=== PATIENT | female | born 1985 | race Two or more races ===

== ENCOUNTER 2019-05-11 11:51 | Observation (INO) | payer MEDICAID, OTHER ==
[~2019-05-11] VITALS: Ht 152.4 cm; Wt 94.3 kg
[2019-05-11 12:06] VITALS: BP 151/83
[2019-05-11] MEDS ORDERED: ACETAMINOPHEN 325 MG TAB PO ONE ×2 (12:10→12:15)
[2019-05-11] MEDS ORDERED: LACTATED RINGER'S 1,000 ML IV ONE ×2 (12:45→13:15)
[2019-05-11] MEDS ORDERED: PREN27TA7 PO (12:48)
[2019-05-11 13:09] LABS: Urine Bacteria FEW /hpf (None Seen); Urine Blood Negative /uL (Negative); Urine Mucus FEW (None Seen); Urine Specific Gravity 1.019 (1.001-1.035); Urine WBC 3 /hpf (0 - 5)
[2019-05-11] MEDS ORDERED: ACETAMINOPHEN 325 MG TAB PO PRN (13:15)
[2019-05-11] MEDS ORDERED: CEFTRIAXONE SODIUM 2 GM in D5W 5% 50 ML IV ONE (13:15)
[2019-05-11 13:23] LABS: Alcohol, Urine < 3.0 mg/dL (0-5); Amphetamine Screen, Urine NEGATIVE (NEGATIVE); Barbiturate Scree,Urine NEGATIVE (NEGATIVE); Benzodiazephine Screen, Urine NEGATIVE (NEGATIVE); Cannabinoid Screen, Urine NEGATIVE (NEGATIVE); Cocaine Screen, Urine NEGATIVE (NEGATIVE); Opiate Scree,Urine NEGATIVE (NEGATIVE); Phencyclidine Screen, Urine NEGATIVE (NEGATIVE)
[2019-05-11 13:47] LABS: Basophils # (auto) 0.1 uL; Basophils % (auto) 0.4 % (0.0-2.0); Eosinophils # (auto) 0 uL; Hematocrit 34.6 % (36.0-46.0); Hemoglobin 11.5 g/dL (12.2-16.2); Lymphocytes # (auto) 0.7 uL; Lymphocytes % (auto) 3.6 % (10.0-50.0); Mean Corpuscular Hemoglobin 27.3 pg (28.0-32.0); Mean Corpuscular Hgb Conc. 33.3 g/dL (32.0-36.0); Mean Corpuscular Volume 81.9 fL (80.0-100.0); Monocytes # (auto) 0.7 uL; Monocytes % (auto) 3.8 % (0.0-12.0); Neutrophils # (auto) 17.7 uL; Neutrophils % (auto) 92.2 % (37.0-80.0); Platelet Count (auto) 282 10^3/uL (140-450); Red Blood Cells 4.23 10^6/uL (4.0-5.20); Red Cell Distribution Width 13.6 % (11.8-14.3); White Blood Cell 19.2 10^3/uL (4.4-10.8)
[2019-05-11 13:55] LABS: Albumin 2.4 g/dL (3.4-5.0); Calcium 8.3 mg/dL (8.5-10.1); Potassium 3.5 mmol/L (3.5-5.1)
[2019-05-11 13:56] LABS: BUN/Creatinine Ratio 10.6
[2019-05-11 13:59] LABS: Bilirubin, Total 0.3 mg/dL (0.2-1.0); Total Protein 6.2 g/dL (6.4-8.2)
[2019-05-12] MEDS ORDERED: cefTRIAXone 1GM/50ML D5W 50 ML IV SCH ×2 (09:00→14:00)
--- NOTE | 2019-05-12 14:12 | NUR ---
assessment Per ss consult new to area, does not have OB provider yet. Alicia Tinoco to see patient for OB. Addendum: 05/15/19 at 1413 by Alicia QUESADA Amended: Links added.
== END 2019-05-12 20:30 | disposition home or self-care (01) | DRG 566 ==
LOC: ER 11:58 → LDRP 12:10
PROVIDERS: ADMIT Specialist; ATTEND Specialist
DX: O23.03 Infections of kidney in pregnancy, third trimester (principal); Z3A.29 29 weeks gestation of pregnancy; N12 Tubulo-interstitial nephritis, not specified as acute or chronic; Z79.899 Other long term (current) drug therapy; Z87.891 Personal history of nicotine dependence
CPT/HCPCS: 36415; 59025; 76805; 80053; 80307; 81001; 81002; 85025; 87040; 87086; 96365; 96366; 99284; G0378; J0696; J7060; 96361